=== PATIENT | male | born 1940 | race Caucasian/White ===

== ENCOUNTER → 2017-01-03 | Outpatient (CLI) | payer MEDICARE ==
[~2017-01-03] MED LIST: ASPIRIN81 MG PO; COUMADIN1 MG PO; COUMADIN4 MG PO; COUMADIN5 MG PO; COUMADIN7.5 MG PO; FLOMAX0.4 MG PO; GILOTRIF30 MG PO; KLOR-CON M2020 MEQ PO; LIPITOR80 MG PO; MINOCYCLINE HC100 MG PO; PROAIR HFA8.5 GM INH; PROTONIX40 MG PO; SYMBICORT 160-4.6 GM INH; TYLENOL500 MG PO; VITAMIN D31000 UNI1 PO; ZEBETA5 MG PO
== END | disposition short-term general hospital (02) ==
LOC: CLONCO 11:54
DX: C34.90 Malignant neoplasm of unspecified part of unspecified bronchus or lung (principal)

== ENCOUNTER → 2017-01-04 | Outpatient (CLI) | payer MEDICARE | END | disposition short-term general hospital (02) | LOC: CLPULM 13:20 | DX: J44.9 Chronic obstructive pulmonary disease, unspecified (principal); G47.33 Obstructive sleep apnea (adult) (pediatric); I27.2 Other secondary pulmonary hypertension; M19.90 Unspecified osteoarthritis, unspecified site ==

== ENCOUNTER 2017-01-14 10:15 | Emergency (ER) | payer MEDICARE ==
[~2017-01-14] VITALS: Ht 172.7 cm; Wt 78.0 kg
[~2017-01-14 10:15] MED LIST changes: -COUMADIN4 MG PO; -COUMADIN5 MG PO; -FLOMAX0.4 MG PO; -GILOTRIF30 MG PO; -KLOR-CON M2020 MEQ PO; -MINOCYCLINE HC100 MG PO; -PROTONIX40 MG PO; -TYLENOL500 MG PO
== END 2017-01-14 11:55 | disposition short-term general hospital (02) ==
LOC: ER 10:15
PROC: 2Y41X5Z Packing of Nasal Region using Packing Material (ICD-10-PCS; principal; 2017-01-14)
DX: R04.0 Epistaxis (principal); I48.91 Unspecified atrial fibrillation; I50.9 Heart failure, unspecified; E78.5 Hyperlipidemia, unspecified; Z79.01 Long term (current) use of anticoagulants; Z85.9 Personal history of malignant neoplasm, unspecified; Z79.899 Other long term (current) drug therapy
CPT/HCPCS: J3430

== ENCOUNTER → 2017-01-14 | Outpatient (CLI) | payer MEDICARE | END | disposition short-term general hospital (02) | LOC: CLCARD 09:26 | DX: J44.9 Chronic obstructive pulmonary disease, unspecified (principal); I44.7 Left bundle-branch block, unspecified; I10 Essential (primary) hypertension ==

== ENCOUNTER → 2017-01-17 | Outpatient (CLI) | payer MEDICARE ==
[~2017-01-17] MED LIST changes: +COUMADIN4 MG PO; +COUMADIN5 MG PO; +FLOMAX0.4 MG PO; +GILOTRIF30 MG PO; +KLOR-CON M2020 MEQ PO; +MINOCYCLINE HC100 MG PO; +PROTONIX40 MG PO; +TYLENOL500 MG PO
== END | disposition short-term general hospital (02) ==
LOC: CLONCO 15:09
DX: C34.90 Malignant neoplasm of unspecified part of unspecified bronchus or lung (principal)

== ENCOUNTER → 2017-01-18 | Outpatient (CLI) | payer MEDICARE | END | disposition short-term general hospital (02) | LOC: CLONCO 08:13 → CLUROL 15:01 | DX: N28.89 Other specified disorders of kidney and ureter (principal) ==

== ENCOUNTER → 2017-02-14 | Outpatient (CLI) | payer MEDICARE | END | disposition short-term general hospital (02) | LOC: CLONCO 13:30 | DX: C34.90 Malignant neoplasm of unspecified part of unspecified bronchus or lung (principal); R21 Rash and other nonspecific skin eruption; R19.7 Diarrhea, unspecified; D50.9 Iron deficiency anemia, unspecified; Z90.2 Acquired absence of lung [part of] ==

== ENCOUNTER → 2017-03-14 | Outpatient (CLI) | payer MEDICARE | END | disposition short-term general hospital (02) | LOC: CLONCO 08:44 | DX: C34.2 Malignant neoplasm of middle lobe, bronchus or lung (principal); D64.9 Anemia, unspecified; E61.1 Iron deficiency ==

== ENCOUNTER → 2017-03-29 | Outpatient (CLI) | payer MEDICARE | END | disposition short-term general hospital (02) | LOC: CLPULM 10:34 | DX: C34.91 Malignant neoplasm of unspecified part of right bronchus or lung (principal); J44.9 Chronic obstructive pulmonary disease, unspecified; M25.861 Other specified joint disorders, right knee; G47.33 Obstructive sleep apnea (adult) (pediatric); G47.37 Central sleep apnea in conditions classified elsewhere; I42.1 Obstructive hypertrophic cardiomyopathy; M19.011 Primary osteoarthritis, right shoulder; I27.2 Other secondary pulmonary hypertension; R09.81 Nasal congestion; Z90.2 Acquired absence of lung [part of]; Z95.2 Presence of prosthetic heart valve; Z87.891 Personal history of nicotine dependence; Z86.79 Personal history of other diseases of the circulatory system; Z85.46 Personal history of malignant neoplasm of prostate; Z92.3 Personal history of irradiation ==

== ENCOUNTER 2017-04-03 14:04 | Emergency (ER) | payer MEDICARE ==
[~2017-04-03] VITALS: Ht 172.7 cm; Wt 76.2 kg
[~2017-04-03 14:04] MED LIST changes: -COUMADIN4 MG PO; -COUMADIN5 MG PO; -FLOMAX0.4 MG PO; -GILOTRIF30 MG PO; -KLOR-CON M2020 MEQ PO; -MINOCYCLINE HC100 MG PO; -PROTONIX40 MG PO; -TYLENOL500 MG PO
[2017-04-03] MEDS ORDERED: FLOMAX0.4 MG PO (14:48)
[2017-04-03] MEDS ORDERED: TYLENOL500 MG PO (14:49)
[2017-04-03] MEDS ORDERED: KLOR-CON M2020 MEQ PO (14:50)
[2017-04-03] MEDS ORDERED: PROTONIX40 MG PO (14:50)
[2017-04-03] MEDS ORDERED: GILOTRIF30 MG PO (15:09)
[2017-04-03] MEDS ORDERED: MINOCYCLINE HC100 MG PO (15:10)
[2017-04-03] MEDS ORDERED: COUMADIN5 MG PO (15:13)
[2017-04-03] MEDS ORDERED: COUMADIN4 MG PO (15:13)
== END 2017-04-03 15:23 | disposition short-term general hospital (02) ==
LOC: ER 14:04
PROC: 3E0T3CZ (ICD-10-PCS; principal; 2017-04-03)
DX: S68.114A Complete traumatic metacarpophalangeal amputation of right ring finger, initial encounter (principal); I48.91 Unspecified atrial fibrillation; E11.9 Type 2 diabetes mellitus without complications; K21.9 Gastro-esophageal reflux disease without esophagitis; E78.5 Hyperlipidemia, unspecified; I10 Essential (primary) hypertension; M19.90 Unspecified osteoarthritis, unspecified site; N40.0 Benign prostatic hyperplasia without lower urinary tract symptoms; Z98.890 Other specified postprocedural states; Z85.46 Personal history of malignant neoplasm of prostate; Z88.8 Allergy status to other drugs, medicaments and biological substances; Z79.01 Long term (current) use of anticoagulants; Z85.118 Personal history of other malignant neoplasm of bronchus and lung; Z86.2 Personal history of diseases of the blood and blood-forming organs and certain disorders involving the immune mechanism; Z95.0 Presence of cardiac pacemaker; Z79.51 Long term (current) use of inhaled steroids; Z79.899 Other long term (current) drug therapy; W28.XXXA Contact with powered lawn mower, initial encounter

== ENCOUNTER → 2017-04-19 | Outpatient (CLI) | payer MEDICARE ==
[~2017-04-19] MED LIST changes: +COUMADIN4 MG PO; +COUMADIN5 MG PO; +FLOMAX0.4 MG PO; +GILOTRIF30 MG PO; +KLOR-CON M2020 MEQ PO; +MINOCYCLINE HC100 MG PO; +PROTONIX40 MG PO; +TYLENOL500 MG PO
== END | disposition short-term general hospital (02) ==
LOC: CLONCO 01:40
DX: C34.2 Malignant neoplasm of middle lobe, bronchus or lung (principal); D50.9 Iron deficiency anemia, unspecified; J44.9 Chronic obstructive pulmonary disease, unspecified

== ENCOUNTER → 2017-04-19 | Outpatient (CLI) | payer MEDICARE | END | disposition short-term general hospital (02) | LOC: CLUROL 01:25 | DX: N28.89 Other specified disorders of kidney and ureter (principal) ==